=== PATIENT | male | born 1965 | race Hispanic/Latino ===

== ENCOUNTER 2020-03-22 18:52 | Inpatient (IN) | payer MEDICAID ==
[~2020-03-22] VITALS: Ht 172.7 cm; Wt 69.8 kg
[~2020-03-22 18:52] MED LIST: AMLO-258 PO; METF-446 PO; MYCO250C36 PO; SITA100T12 PO; TACR1CAP10 PO
[2020-03-22 19:50] LABS: BASOPHILS % (AUTO) 0.2 % (0.0-5.0); EOSINOPHILS % (AUTO) 0.8 % (0.0-8.0); HEMATOCRIT 38.4 % (42-54); MEAN CORPUSCULAR HGB CONC 32.8 g/dL (32.0-36.0); MEAN CORPUSCULAR VOLUME 94.6 fL (79-99); MONOCYTES % (AUTO) 12.8 % (3.0-13.0); NEUTROPHILS % (AUTO) 73.4 % (40.0-77.0); PLATELET COUNT (AUTO) 102 K/uL (130-400); RED BLOOD CELL COUNT(AUTO) 4.06 MIL/uL (4.50-6.20); RED CELL DISTRIBUTION WIDTH 12.3 % (11.0-15.5); WHITE BLOOD COUNT (AUTO) 5.1 K/uL (4.8-10.8)
[2020-03-22 20:01] LABS: PARTIAL THROMBOPLASTIN TIME 27.3 SEC (26.3-35.5)
[2020-03-22 20:12] LABS: ALBUMIN 4.3 g/dL (3.5-5.0); BILIRUBIN,TOTAL 0.3 mg/dL (0.2-1.0); CREATININE 1.7 mg/dL (0.5-1.5); POTASSIUM 4.2 mmol/L (3.5-5.1); TOTAL PROTEIN, SERUM 7.7 g/dL (6.0-8.3)
[2020-03-22 20:20] LABS: INR 0.92 (0.85-1.15)
[2020-03-22 20:39] LABS: APPEARANCE,URINE Clear (CLEAR); BILIRUBIN,URINE Negative (NEGATIVE); COLOR,URINE Yellow (YELLOW); GLUCOSE, URINE (UA) Negative (NEGATIVE); KETONES,URINE Trace mg/dL (NEGATIVE); LEUKOCYTE ESTERASE ,URINE Negative (NEGATIVE); NITRATE,URINE Negative (NEGATIVE); OCCULT BLOOD,URINE Negative (NEGATIVE); PROTEIN,URINE Negative (NEGATIVE)
[2020-03-22 20:47] LABS: AMPHET/METH SCREEN,URINE NEGATIVE (NEGATIVE); BARBITURATE SCREEN, URINE NEGATIVE (NEGATIVE); BENZODIAZEPINES SCREEN,URINE NEGATIVE (NEGATIVE); CANNABINOID SCREEN,URINE NEGATIVE (NEGATIVE); COCAINE SCREEN,URINE NEGATIVE (NEGATIVE); OPIATE SCREEN,URINE NEGATIVE (NEGATIVE); PHENCYCLIDINE SCREEN,URINE NEGATIVE (NEGATIVE)
[2020-03-22] MEDS ORDERED: LORAZEPAM 2 MG/ML 1 ML VIAL ONE (21:44)
[2020-03-23] MEDS ORDERED: ONDANSETRON HCL 4 MG/2 ML VIAL IV PRN
[2020-03-23] MEDS ORDERED: CLINDAMYCIN HCL 150 MG CAP PO SCH (01:15)
[2020-03-23] MEDS: SODIUM CHLORIDE 0.9% 1000ML 1,000 ML IV SCH ×2 (01:15→21:15)
[2020-03-23] MEDS ORDERED: CLINDAMYCIN HCL 150 MG CAP ONE ×2 (02:10→08:30)
[2020-03-23 05:23] LABS: ALBUMIN 3.5 g/dL (3.5-5.0); BILIRUBIN,TOTAL 0.5 mg/dL (0.2-1.0); CREATININE 1.2 mg/dL (0.5-1.5); POTASSIUM 3.9 mmol/L (3.5-5.1); TOTAL PROTEIN, SERUM 6.4 g/dL (6.0-8.3)
[2020-03-23 05:36] LABS: BASOPHILS % (AUTO) 0.3 % (0.0-5.0); EOSINOPHILS % (AUTO) 1.2 % (0.0-8.0); HEMATOCRIT 35.7 % (42-54); LYMPHOCYTES % (AUTO) 19.4 % (21.0-51.0); MEAN CORPUSCULAR HEMOGLOBIN 30.5 pg (27.0-33.0); MEAN CORPUSCULAR HGB CONC 32.8 g/dL (32.0-36.0); MEAN CORPUSCULAR VOLUME 93.2 fL (79-99); MONOCYTES % (AUTO) 17.3 % (3.0-13.0); NEUTROPHILS % (AUTO) 60.6 % (40.0-77.0); PLATELET COUNT (AUTO) 90 K/uL (130-400); RED BLOOD CELL COUNT(AUTO) 3.83 MIL/uL (4.50-6.20); RED CELL DISTRIBUTION WIDTH 12.4 % (11.0-15.5); WHITE BLOOD COUNT (AUTO) 3.5 K/uL (4.8-10.8)
[2020-03-23 06:40] LABS: ERYTHROCYTE SEDIMENTATION RATE 15 MM/HR (0-20)
[2020-03-23] MEDS ORDERED: ASPIRIN 325 MG TABLET ONE (08:30)
[2020-03-23] MEDS ORDERED: NEOMY SULF/BACITRA/POLYMYXIN B 1 EACH PACKET TP ONE (08:30)
[2020-03-23] MEDS ORDERED: FAMOTIDINE/PF 20 MG/2 ML VIAL IV ONE (08:31)
[2020-03-23] MEDS: NEOMY SULF/BACITRA/POLYMYXIN B 1 EACH PACKET TP SCH ×3 (09:00→21:00)
[2020-03-23] MEDS: FAMOTIDINE/PF 20 MG/2 ML VIAL IV SCH (09:00)
[2020-03-23] MEDS: ASPIRIN 325MG EC TAB 325 MG TABLET.DR PO SCH (09:00)
[2020-03-23] MEDS ORDERED: MYCO250C36 PO ×2 (09:31)
[2020-03-23] MEDS ORDERED: TACR5CAP2 PO (09:31)
[2020-03-23] MEDS ORDERED: GLIP10TA9 PO (09:31)
[2020-03-23] MEDS: CLINDAMYCIN HCL 150 MG CAP PO SCH ×2 (13:15→23:45)
[2020-03-23 14:30] VITALS: BP 126/70
[2020-03-23 16:00] VITALS: BP 124/64
--- NOTE | 2020-03-23 16:54 | NUR ---
DC PLAN VISITED WITH PATIENT. PATIENT LIVES WITH MOTHER. INDEPENDENT ABLE TO PERFORM ADL'S. PATIENT HAS DME'S. PROVIDER DAILY. PLAN IS TO DC HOME. Addendum: 03/23/20 at 1656 by MERLIN MITCHELL RN CM Amended: Links added.
[2020-03-23 20:00] VITALS: BP 167/80
[2020-03-24] VITALS: BP 156/74
[2020-03-24] MEDS: CLINDAMYCIN HCL 150 MG CAP PO SCH ×2 (01:15→11:14)
[2020-03-24 03:55] VITALS: BP 130/67
[2020-03-24 05:33] LABS: BASOPHILS % (AUTO) 0.3 % (0.0-5.0); HEMATOCRIT 38.4 % (42-54); LYMPHOCYTES % (AUTO) 15.2 % (21.0-51.0); MEAN CORPUSCULAR HEMOGLOBIN 30.3 pg (27.0-33.0); MEAN CORPUSCULAR HGB CONC 32.8 g/dL (32.0-36.0); MEAN CORPUSCULAR VOLUME 92.3 fL (79-99); MONOCYTES % (AUTO) 15.2 % (3.0-13.0); PLATELET COUNT (AUTO) 95 K/uL (130-400); RED BLOOD CELL COUNT(AUTO) 4.16 MIL/uL (4.50-6.20); RED CELL DISTRIBUTION WIDTH 12.3 % (11.0-15.5); WHITE BLOOD COUNT (AUTO) 3.9 K/uL (4.8-10.8)
[2020-03-24 06:07] LABS: ALBUMIN 3.8 g/dL (3.5-5.0); BILIRUBIN,TOTAL 0.4 mg/dL (0.2-1.0); CREATININE 1.2 mg/dL (0.5-1.5); POTASSIUM 4.4 mmol/L (3.5-5.1)
[2020-03-24 07:30] VITALS: BP 136/74
[2020-03-24] MEDS: PHARMACY COMMUNICATION MISC SCH ×2 (08:00)
[2020-03-24] MEDS ORDERED: GLIPIZIDE XL 10MG TAB PO SCH (08:00)
[2020-03-24] MEDS ORDERED: TACROLIMUS 1 MG CAPSULE PO SCH (09:00)
[2020-03-24] MEDS ORDERED: MYCOPHENOLATE MOFETIL 250 MG CAPSULE PO SCH ×2 (09:00→21:00)
[2020-03-24] MEDS: ASPIRIN 325MG EC TAB 325 MG TABLET.DR PO SCH (09:00)
[2020-03-24] MEDS: NEOMY SULF/BACITRA/POLYMYXIN B 1 EACH PACKET TP SCH (09:00)
[2020-03-24] MEDS ORDERED: LINAGLIPTIN 5 MG TABLET PO SCH (09:00)
[2020-03-24] MEDS ORDERED: GABAPENTIN 100 MG CAPSULE PO SCH (09:30)
[2020-03-24] MEDS ORDERED: ALPRAZOLAM 0.5 MG TABLET ONE (09:33)
[2020-03-24 11:00] VITALS: BP 99/63
[2020-03-24] MEDS: FAMOTIDINE/PF 20 MG/2 ML VIAL IV SCH (11:15)
[2020-03-24] MEDS ORDERED: NEOMY SULF/BACITRAC ZN/POLY OINT 30GM TUBE TP SCH (14:00)
[2020-03-24] MEDS ORDERED: CLIN300C9 PO (14:50)
--- NOTE | 2020-03-24 16:00 | NUR ---
NOTE DISCHARGE INSTRUCTIONS GIVEN TO PATIENT AT THIS TIME. REFER TO DC SUMMARY FOR DETAILS. STABLE UPON LEAVING. Addendum: 03/24/20 at 1655 by DREW HAHN RN NOTIFIED DR NARVAEZ ABOUT MRA RESULTS. NO ORDERS GIVEN.
== END 2020-03-24 16:10 | disposition home or self-care (01) | DRG 47 ==
LOC: EDH 18:52 → EDHIP 18:53 → 3DH 03-23 12:59
PROVIDERS: ADMIT Internal Medicine; ATTEND Internal Medicine
DX: G45.9 Transient cerebral ischemic attack, unspecified (principal); N17.9 Acute kidney failure, unspecified; E11.22 Type 2 diabetes mellitus with diabetic chronic kidney disease; E86.0 Dehydration; I12.0 Hypertensive chronic kidney disease with stage 5 chronic kidney disease or end stage renal disease; J32.9 Chronic sinusitis, unspecified; H54.61 Unqualified visual loss, right eye, normal vision left eye; M54.10 Radiculopathy, site unspecified; N18.6 End stage renal disease; R29.810 Facial weakness; R29.700 NIHSS score 0; Z94.0 Kidney transplant status; Z86.14 Personal history of Methicillin resistant Staphylococcus aureus infection; Z84.89 Family history of other specified conditions; Z82.49 Family history of ischemic heart disease and other diseases of the circulatory system
CPT/HCPCS: 36415; 70450; 70544; 70551; 71045; 72141; 76700; 80053; 80061; 80305; 81003; 82550; 82948; 83721; 84484; 85025; 85610; 85651; 85730; 93005; G0378; J2060; J3490

== ENCOUNTER 2023-05-29 14:20 | Emergency (ER) | payer MEDICAID ==
[~2023-05-29] VITALS: Ht 172.7 cm; Wt 69.4 kg
[~2023-05-29 14:20] MED LIST changes: -AMLO-258 PO; +AMLO5TAB5 PO; +GLIP10TA9 PO; -METF-446 PO; -TACR1CAP10 PO; +TACR1GRA PO
[2023-05-29] MEDS ORDERED: CYCL10TA16 PO (16:29)
[2023-05-29] MEDS ORDERED: IBUP-2070 PO (16:29)
[2023-05-29] MEDS ORDERED: CYCLOBENZAPRINE HCL 10 MG TABLET PO ONE (16:30)
[2023-05-29] MEDS ORDERED: KETOROLAC 30MG VIAL (30MG/ML) IM ONE (16:30)
[2023-05-29] MEDS ORDERED: KETOROLAC 30MG VIAL (30MG/ML) ONE (16:46)
[2023-05-29] MEDS ORDERED: CYCLOBENZAPRINE HCL 10 MG TABLET ONE (16:46)
[2023-05-29 16:57] VITALS: BP 149/83; PULSE 84; RESP 18; O2SAT 97
== END 2023-05-29 17:05 | disposition home or self-care (01) ==
LOC: EDH 14:20
DX: S86.112A Strain of other muscle(s) and tendon(s) of posterior muscle group at lower leg level, left leg, initial encounter (principal); E11.9 Type 2 diabetes mellitus without complications; I10 Essential (primary) hypertension; Z79.621 Long term (current) use of calcineurin inhibitor; Z79.624 Long term (current) use of inhibitors of nucleotide synthesis; Z79.84 Long term (current) use of oral hypoglycemic drugs; X58.XXXA Exposure to other specified factors, initial encounter; Y99.8 Other external cause status; Y93.89 Activity, other specified; Y92.89 Other specified places as the place of occurrence of the external cause
CPT/HCPCS: 99285; 76882; 96372; J1885